=== PATIENT | female | born 1960 | race Caucasian/White ===

== ENCOUNTER 2017-02-20 07:37 | Inpatient (IN) | payer BC ==
[~2017-02-20] VITALS: Ht 154.9 cm; Wt 52.0 kg
[2017-02-20 08:38] LABS: BASOPHIL % 0.3 % (0-2); PLATELET COUNT 199 x10^3mcL (130-400); RED CELL DISTRIBUTION WIDTH 13.4 % (11.5-14.5)
[2017-02-20 08:44] LABS: UA SPECIFIC GRAVITY 1.015 (1.005-1.035); microscopic required? YES; urine erythrocyte NEGATIVE (NEGATIVE)
[2017-02-20 08:54] LABS: ALKALINE PHOSPHATASE 127 U/L (46-116); ALT/SGPT 466 U/L (14-59); AST/SGOT 464 U/L (15-37); BILIRUBIN TOTAL 2.9 mg/dL (0.20-1.00); CALCIUM 8.9 mg/dL (8.5-10.1); CARBON DIOXIDE 28.3 mmol/L (21-32); CHLORIDE SERUM 106 mmol/L (98-107); CREATININE SERUM 0.9 mg/dL (0.6-1.0); GFR1 > 60 mL/min; GLUCOSE SERUM 95 mg/dL (74-106); LIPASE 91 IU/L (73-393); POTASSIUM SERUM 3.8 mmol/L (3.5-5.1); SODIUM SERUM 143 mmol/L (136-145); TOTAL PROTEIN, SERUM 7.5 g/dL (6.4-8.2); TRIGLYCERIDES 68 mg/dL (<150)
[2017-02-20 08:56] LABS: CHOLESTEROL 125 mg/dL (<200); CHOLESTEROL/HDL RATIO 1.8; HDL CHOLESTEROL 68 mg/dL (40-60)
[2017-02-20 08:58] LABS: T3 TOTAL 0.94 ng/mL
[2017-02-20 09:01] LABS: FREE T4 1.61 ng/dL (0.76-1.46); FREE THYROXINE INDEX 3.7 ug/dL (1.4-4.5)
[2017-02-20 10:57] LABS: BILIRUBIN DIRECT 1.8 mg/dL (0.0-0.2); BILIRUBIN TOTAL 2.8 mg/dL (0.20-1.00); PHOSPHOROUS 2.2 mg/dL (2.5-4.9)
[2017-02-20 11:01] VITALS: BP 130/57
[2017-02-20 11:12] VITALS: BP 121/67
[2017-02-20 13:15] VITALS: BP 126/59
[2017-02-20 17:46] VITALS: BP 121/58
[2017-02-20 21:15] VITALS: BP 145/64
[2017-02-21 05:57] VITALS: BP 102/60
[2017-02-21 06:14] LABS: BASOPHIL % 0.5 % (0-2); PLATELET COUNT 135 x10^3mcL (130-400); RED CELL DISTRIBUTION WIDTH 13.6 % (11.5-14.5)
[2017-02-21 06:25] LABS: CALCIUM 7.7 mg/dL (8.5-10.1); CARBON DIOXIDE 23.4 mmol/L (21-32); CHLORIDE SERUM 111 mmol/L (98-107); CREATININE SERUM 0.8 mg/dL (0.6-1.0); GFR1 > 60 mL/min; GLUCOSE SERUM 61 mg/dL (74-106); PHOSPHOROUS 2.7 mg/dL (2.5-4.9); SODIUM SERUM 143 mmol/L (136-145)
[2017-02-21 09:11] LABS: ALBUMIN 2.7 g/dL (3.4-5.0); BILIRUBIN DIRECT 0.29 mg/dL (0.0-0.2); BILIRUBIN TOTAL 0.8 mg/dL (0.20-1.00); TOTAL PROTEIN, SERUM 5.4 g/dL (6.4-8.2)
[2017-02-21 14:42] VITALS: BP 116/63
[2017-02-21 17:54] VITALS: BP 112/50
[2017-02-21 21:09] VITALS: BP 110/49
[2017-02-22 05:49] VITALS: BP 118/64
[2017-02-22 06:35] LABS: ALKALINE PHOSPHATASE 99 U/L (46-116); ALT/SGPT 183 U/L (14-59); AST/SGOT 41 U/L (15-37); BILIRUBIN TOTAL 0.6 mg/dL (0.20-1.00); CALCIUM 7.8 mg/dL (8.5-10.1); CARBON DIOXIDE 24.7 mmol/L (21-32); CHLORIDE SERUM 111 mmol/L (98-107); CREATININE SERUM 0.8 mg/dL (0.6-1.0); GFR1 > 60 mL/min; GLUCOSE SERUM 73 mg/dL (74-106); POTASSIUM SERUM 3.8 mmol/L (3.5-5.1); SODIUM SERUM 144 mmol/L (136-145)
[2017-02-22 06:42] LABS: ALBUMIN 2.6 g/dL (3.4-5.0); TOTAL PROTEIN, SERUM 5.3 g/dL (6.4-8.2)
[2017-02-22 06:48] LABS: BASOPHIL % 0.3 % (0-2); PLATELET COUNT 150 x10^3mcL (130-400); RED CELL DISTRIBUTION WIDTH 13.2 % (11.5-14.5)
[2017-02-22 10:00] VITALS: BP 105/61
[2017-02-22] MEDS ORDERED: CEPHALEXIN250 MG/5 M PO (14:16)
[2017-02-22] MEDS ORDERED: BD LACTINEX1.4 MG PO (14:16)
[2017-02-22 14:26] VITALS: BP 105/61
== END 2017-02-22 14:40 | disposition home or self-care (01) | DRG 445 ==
LOC: ED 07:37 → DU 09:41
PROVIDERS: Family Medicine; Internal Medicine Gastroenterology; Specialist; ADMIT Family Medicine
DX: K91.5 Postcholecystectomy syndrome (principal); N39.0 Urinary tract infection, site not specified; E83.39 Other disorders of phosphorus metabolism; Z68.21 Body mass index [BMI] 21.0-21.9, adult; Z87.891 Personal history of nicotine dependence; Z85.828 Personal history of other malignant neoplasm of skin; Z90.49 Acquired absence of other specified parts of digestive tract; Z88.8 Allergy status to other drugs, medicaments and biological substances
CPT/HCPCS: 78226; 83880; 84439; A9537; J0696; J1170; J2405; J7030; Q0092